=== PATIENT | female | born 1995 | race Caucasian/White ===

== ENCOUNTER 2017-01-16 09:37 | Day surgery (SDC) | payer BC ==
[2017-01-16] MEDS ORDERED: Lactated Ringers 1,000 ML PRIMARY IV ONE ×2 (09:40→11:00)
[2017-01-16] MEDS ORDERED: LIDOCAINE W/ SODIUM BICARB 0.5 ML SYR ONE (09:40)
[2017-01-16 10:03] LABS: URINE SPECIFIC GRAVITY - MAN 1.022
[2017-01-16] MEDS ORDERED: MIDAZOLAM 5 MG/1 ML ONE (10:03)
[2017-01-16] MEDS ORDERED: LIDOCAINE MPF 2% - 5 ML (20 MG/1 ML) ONE (10:04)
[2017-01-16] MEDS ORDERED: fentaNYL Inj 250 MCG/5 ML VIAL ONE (10:04)
[2017-01-16] MEDS ORDERED: ROCURONIUM 10 MG/1 ML - 5 ML VIAL IVP ONE (10:08)
[2017-01-16] MEDS ORDERED: BUPIVACAINE 0.5% W/EPI MPF -30 ML VIAL IV ONE (10:10)
[2017-01-16] MEDS ORDERED: DEXAMETHASONE SOD PHOSPHATE 4 MG/1 ML VIAL ONE (10:17)
[2017-01-16] MEDS ORDERED: ONDANSETRON 4 MG/2 ML VIAL ONE (10:17)
[2017-01-16] MEDS ORDERED: KETOROLAC 30 MG/1 ML VIAL ONE (10:37)
[2017-01-16] MEDS ORDERED: SUGAMMADEX SODIUM 200 MG/2 ML VIAL IV ONE (10:51)
[2017-01-16] MEDS ORDERED: HYDROcodone-APAP 5 MG -325 MG TABLET PO PRN (11:27)
[2017-01-16] MEDS ORDERED: IBUPROFEN 800 MG TABLET PO PRN (11:27)
[2017-01-16] MEDS ORDERED: Ondansetron ODT Tab 8 MG TAB PO PRN (11:27)
[2017-01-16] MEDS ORDERED: KETOROLAC 15 MG/1 ML VIAL IVP PRN (11:27)
[2017-01-16] MEDS ORDERED: NORMAL SALINE 10 ML SYRINGE FLUSH IVP PRN (11:27)
--- NOTE | 2017-01-16 11:37 | OB.OP.NOTE ---
Operative Report Surgeon: Aron Fleet Coordinator: Harris Root MD Anesthesia Type: General Anesthesia Provider: Nhan Baker CRNA Surgery Date: 01/16/17 Preoperative Diagnosis: Large Right Ovarian Cyst Postoperative Diagnosis: Right Hemorrhagic Corpus Luteum Cyst Procedure: Laparoscopy with Right Ovarian Cystotomy and Cyst Drainage Estimated Blood Loss (mL): 40 Fluids: 1700 ml Complications: None Findings at Surgery: Large right ovarian cyst containing serous fluid and blood. Normal uterus, tubes, and right ovary. Indications for the Procedure: Large right ovarian cyst, risk for torsion. Description of Procedure: The patient was taken to the operating room and placed supine where general endotracheal anesthesia was administered. She was then placed in lithotomy position in [facility]. She was prepped and draped in the normal sterile fashion her bladder was entered of urine with a straight catheter. A bivalve speculum was placed in the vagina and the anterior lip of the cervix was grasped with a single-tooth tenaculum. Uterus was sounded to a depth of 8 cm. A HUMI uterine manipulator was introduced into the endometrial cavity and the tip Tangela was inflated with air. The speculum was removed as was the tenaculum. Attention was then turned to the abdomen where quarter percent Marcaine with epinephrine was injected in the midline at the inferior edge of the umbilicus and just lateral to that on both sides. A scalpel was used to create a midline infraumbilical incision 5 mm in length. A 5 mm non-bladed laparoscopic trocar was introduced through the umbilical incision and the peritoneal cavity with a direct insertion technique under direct visualization with a 50 m scope placed within the port. The abdomen was insufflated with carbon dioxide. A second port was then placed in the midline just above the pubic bone after injection with Marcaine. A 50 m non-bladed [place] trocar was introduced to this incision into the perineal cavity under direct visualization. A blunt probe was then passed through this port and this was used to manipulate pelvic and abdominal contents while a systematic inspection was made a photographs were taken with findings as noted above. The patient was placed in Trendelenburg position. A blunt probe was used to perforate the wall of the cyst with return of serous bloody fluid. This was drained and copiously irrigated and suctioned from the pelvis. Persistent bleeding was noted therefore the cyst wall was opened using a gyrus PK bipolar device. The edges of the incision were cauterized and this resulted in good hemostasis. The pelvis was copiously irrigated, inspected, and good hemostasis was noted. All isthmus were then removed from the abdomen and the abdomen was desufflated with direct pressure was removed The Trocar Sleeves. The Sleeves Were Removed and the Skin Wounds Were Closed and Dressed Appropriately. Bleeding from the Tenaculum Site on the Cervix Was Controlled with 0 Vicryl Suture after the HUMI Was Removed. Sponge, lap, and needle counts were correct 2. There were no complications at surgery. The patient left to recovery in good condition. Plan: Routine postop care and discharge to home.
[2017-01-16 13:16] VITALS: RESP 14; TEMP 98
== END 2017-01-16 12:25 | disposition home or self-care (01) ==
LOC: SDSC 09:37
PROVIDERS: ATTEND Obstetrics & Gynecology
DX: N83.201 Unspecified ovarian cyst, right side (principal); N83.11 Corpus luteum cyst of right ovary
CPT/HCPCS: 49322; 84703; J1100; J1885; J2001; J2250; J2405; J2704; J3010; S0020; J7120